=== PATIENT | female | born 1985 | race Two or more races ===

== ENCOUNTER 2019-04-16 20:40 | Inpatient (IN) | payer OTHER ==
[~2019-04-16] VITALS: Ht 162.6 cm; Wt 68.0 kg
[2019-04-16 20:53] VITALS: BP 134/68
[2019-04-16] MEDS ORDERED: OXYTOCIN 30U/ 0.9% NaCL 500ML 500 ML IV PRN (21:10)
[2019-04-16] MEDS ORDERED: OXYTOCIN 30U/ 0.9% NaCL 500ML 500 ML IV ONE (21:10)
[2019-04-16] MEDS ORDERED: NEWBORN KIT ONE (21:13)
[2019-04-16] MEDS ORDERED: OXYTOCIN 30U/ 0.9% NaCL 500ML 500 ML ONE (21:13)
[2019-04-16] MEDS: LACTATED RINGERS 1,000 ML IV SCH ×2 (21:18→23:14)
[2019-04-16] MEDS ORDERED: FENTANYL PF 100 MCG/2ML ONE (21:19)
[2019-04-16] MEDS: FENTANYL PF 100 MCG/2ML IVPush PRN (21:20)
[2019-04-16] MEDS ORDERED: TERBUTALINE 1 MG/ML, 1ML IVPush PRN ×2 (21:30)
[2019-04-16] MEDS ORDERED: FENTANYL PF 100 MCG/2ML IV PRN (21:30)
[2019-04-16] MEDS ORDERED: CALCIUM CARBONATE 500 MG TAB.CHEW PO PRN (21:30)
[2019-04-16] MEDS ORDERED: ONDANSETRON 2MG/ML, 2ML IVPush PRN (21:30)
[2019-04-16] MEDS ORDERED: FENTANYL/BUPIV./NS/PF 0 ML EPIDCONT ONE (21:41)
[2019-04-16 21:42] LABS: BASOPHILS # (AUTO) 0.03 x10^3/uL (0-0.1); BASOPHILS % (AUTO) 0 % (0-1); EOSINOPHILS # (AUTO) 0.02 x10^3/uL (0-0.4); EOSINOPHILS % (AUTO) 0 % (1-7); LYMPHOCYTES # (AUTO) 1.47 x10^3/uL (1-3.4); LYMPHOCYTES % (AUTO) 13 % (22-44); MD NO; MEAN CORPUSCULAR HEMOGLOBIN 23.1 pg (27.0-34.8); MEAN CORPUSCULAR HGB CONC 31.6 g/dL (32.4-35.8); MEAN CORPUSCULAR VOLUME 73.2 fL (80-100); MEAN PLATELET VOLUME 10.6 fL (7.4-10.4); MONOCYTES # (AUTO) 0.43 x10^3/uL (0.2-0.8); MONOCYTES % (AUTO) 4 % (2-9); NEUTROPHILS # (AUTO) 9.83 x10^3/uL (1.8-6.8); NEUTROPHILS % (AUTO) 83 % (42-75); PLATELET COUNT 235 x10^3/uL (130-400); RED BLOOD COUNT 4.03 x10^6/uL (3.82-5.3); RED CELL DISTRIBUTION WIDTH 19.1 % (9.6-15.2)
[2019-04-16] MEDS ORDERED: FENTANYL/BUPIV./NS/PF 250 ML EPIDCONT SCH (21:46)
[2019-04-16] MEDS: LACTATED RINGERS 1,000 ML IVBOLUS PRN (21:54)
[2019-04-16] MEDS ORDERED: BUPIVACAINE 0.25% ONE (21:59)
[2019-04-16] MEDS ORDERED: FENTANYL PF 500 MCG, BUPIVACAINE/PF 0.5%, 30ML 62.5 ML in SODIUM CHLORIDE 0.9% 177.5 ML EPIDCONT SCH (22:00)
[2019-04-16] MEDS ORDERED: EPHEDRINE 50 MG/ML, 1ML IVPush PRN (22:00)
[2019-04-16] MEDS ORDERED: METOCLOPRAMIDE 5 MG/ML, 2ML ONE (23:45)
[2019-04-16] MEDS ORDERED: SODIUM CITRATE/CITRIC ACID 15 ML UDC ONE (23:45)
[2019-04-16] MEDS: D5%-LACTATED RINGERS 1,000 ML IV SCH (23:50)
[2019-04-17] MEDS ORDERED: METOCLOPRAMIDE 5 MG/ML, 2ML IV ONE
[2019-04-17] MEDS ORDERED: SODIUM CITRATE/CITRIC ACID 15 ML UDC PO ONE
[2019-04-17] MEDS: LACTATED RINGERS 1,000 ML IVBOLUS PRN (00:26)
[2019-04-17] MEDS: LACTATED RINGERS 1,000 ML IV SCH ×6 (05:10→21:46)
[2019-04-17] MEDS: D5%-LACTATED RINGERS 1,000 ML IV SCH ×3 (05:10→21:10)
[2019-04-17] MEDS ORDERED: ONDANSETRON 2MG/ML, 2ML IV PRN (08:00)
[2019-04-17] MEDS ORDERED: OXYcodone/APAP 5/325MG TABLET PO PRN (08:00)
[2019-04-17] MEDS ORDERED: ACETAMINOPHEN 325 MG TABLET PO PRN (08:00)
[2019-04-17] MEDS ORDERED: DOCUSATE 100 MG CAPSULE PO PRN (08:00)
[2019-04-17] MEDS ORDERED: BISACODYL 10 MG SUPP PR PRN (08:00)
[2019-04-17] MEDS ORDERED: RHOGAM FROM BLOOD BANK 1 NOTE EA IM/IV ONE (08:00)
[2019-04-17] MEDS ORDERED: MISOPROSTOL 200 MCG TABLET PR PRN (08:00)
[2019-04-17] MEDS ORDERED: HYDROcodone/APAP 5/325 TABLET PO PRN (08:00)
[2019-04-17] MEDS ORDERED: IBUPROFEN 600 MG TABLET ONE (08:11)
[2019-04-17] MEDS ORDERED: OXYTOCIN 30U/ 0.9% NaCL 500ML 500 ML ONE (08:33)
[2019-04-17] MEDS: OXYTOCIN 30U/ 0.9% NaCL 500ML 500 ML IV SCH ×2 (08:36→17:44)
[2019-04-17] MEDS: PRENATAL VIT/IRON/FA 1 EACH TABLET PO SCH (09:00)
[2019-04-17 12:00] VITALS: BP 111/68
[2019-04-17 16:00] LABS: BASOPHILS # (AUTO) 0.04 x10^3/uL (0-0.1); BASOPHILS % (AUTO) 0 % (0-1); EOSINOPHILS # (AUTO) 0.04 x10^3/uL (0-0.4); EOSINOPHILS % (AUTO) 0 % (1-7); LYMPHOCYTES # (AUTO) 1.54 x10^3/uL (1-3.4); LYMPHOCYTES % (AUTO) 11 % (22-44); MD NO; MEAN CORPUSCULAR HEMOGLOBIN 22.6 pg (27.0-34.8); MEAN CORPUSCULAR HGB CONC 30.7 g/dL (32.4-35.8); MEAN CORPUSCULAR VOLUME 73.6 fL (80-100); MEAN PLATELET VOLUME 10.6 fL (7.4-10.4); MONOCYTES # (AUTO) 0.43 x10^3/uL (0.2-0.8); MONOCYTES % (AUTO) 3 % (2-9); NEUTROPHILS # (AUTO) 11.37 x10^3/uL (1.8-6.8); NEUTROPHILS % (AUTO) 85 % (42-75); PLATELET COUNT 214 x10^3/uL (130-400); RED BLOOD COUNT 3.87 x10^6/uL (3.82-5.3); RED CELL DISTRIBUTION WIDTH 18.4 % (9.6-15.2)
[2019-04-17] MEDS: IBUPROFEN 800 MG TABLET PO PRN (16:32)
[2019-04-17 17:00] VITALS: BP 104/64
[2019-04-17 20:00] VITALS: BP 107/67
[2019-04-18] VITALS: BP 101/61
[2019-04-18] MEDS: FENTANYL PF 100 MCG/2ML IVPush PRN (00:27)
[2019-04-18 04:00] VITALS: BP 104/65
[2019-04-18] MEDS: IBUPROFEN 800 MG TABLET PO PRN ×2 (06:44→14:15)
[2019-04-18 07:42] VITALS: BP 114/72
[2019-04-18] MEDS: PRENATAL VIT/IRON/FA 1 EACH TABLET PO SCH (08:15)
[2019-04-18] MEDS ORDERED: IBUP-1222 PO (13:59)
[2019-04-18] MEDS ORDERED: IBUP-1223 PO (14:01)
== END 2019-04-18 15:35 | disposition home or self-care (01) | DRG 807 ==
LOC: LDOP 20:40 → EDIP 21:06 → LDIP 21:10 → 2NW 04-17 10:38
PROVIDERS: ADMIT Obstetrics & Gynecology; ATTEND Obstetrics & Gynecology
PROC: 10E0XZZ Delivery of Products of Conception, External Approach (ICD-10-PCS; principal; 2019-04-17)
PROC: 0KQM0ZZ Repair Perineum Muscle, Open Approach (ICD-10-PCS; 2019-04-17)
PROC: 3E0R3BZ Introduction of Anesthetic Agent into Spinal Canal, Percutaneous Approach (ICD-10-PCS; 2019-04-17)
PROC: 00HU33Z Insertion of Infusion Device into Spinal Canal, Percutaneous Approach (ICD-10-PCS; 2019-04-17)
DX: O70.1 Second degree perineal laceration during delivery (principal); Z37.0 Single live birth; Z3A.38 38 weeks gestation of pregnancy
CPT/HCPCS: 36415; J7121; 85025; 86850; 86900; 89060; G0378; J3010; J2590; J7120; Q0114